=== PATIENT | female | born 1975 | race Caucasian/White ===

== ENCOUNTER → 2016-09-13 | Outpatient (CLI) | payer OTHER | LOC: FIMAGING 15:15 | PROVIDERS: ATTEND Family Medicine | DX: Z12.31 Encounter for screening mammogram for malignant neoplasm of breast (principal) | CPT/HCPCS: G0202 ==

== ENCOUNTER → 2017-11-29 | Outpatient (CLI) | payer OTHER | LOC: BRMIMAGING 09:35 | PROVIDERS: ATTEND Internal Medicine | DX: M06.4 Inflammatory polyarthropathy (principal); M46.97 Unspecified inflammatory spondylopathy, lumbosacral region; R79.82 Elevated C-reactive protein (CRP); Z97.5 Presence of (intrauterine) contraceptive device | CPT/HCPCS: 72114-PO; 73130-PO; 73562-PO ==